=== PATIENT | female | born 1995 | race Caucasian/White ===

== ENCOUNTER 2022-02-01 05:30 | Outpatient (CLI) | payer BC ==
[~2022-02-01] VITALS: Ht 162.6 cm; Wt 73.6 kg
[2022-02-01] MEDS ORDERED: NORG1TAB78 PO (09:19)
[2022-02-01] MEDS ORDERED: VENL150C98 PO (09:19)
[2022-02-01] MEDS ORDERED: AMLO-251 PO (09:19)
--- NOTE | 2022-02-01 15:28 | Progress Note-Pre Operative ---
Pre-Operative Progress Note Date of Available H&P: Feb 02, 2022 Date H&P Reviewed: Feb 02, 2022 Time H&P Reviewed: 12:22 History & Physical: H&P Reviewed, No changes noted Pre-Operative Diagnosis: ROYAL-2 MANNY NGUYEN MD Feb 01, 2022 15:28
--- NOTE | 2022-02-01 15:29 | Progress Note-Post Operative ---
Post-Operative Progess Note Surgeon (s)/District Extension Service Agent (s) Surgeon MANNY NGUYEN MD District Extension Service Agent: none Pre-Operative Diagnosis ROYAL-2 Post-Operative Diagnosis Same with pathology pending Procedure & Operative Findings Date of Procedure 02/01/22 Procedure Performed/Findings LEEP procedure Anesthesia Type General Estimated Blood Loss Estimated blood loss (mL): minimal cc Specimens/Packing Specimens Removed ectocervix - LEEP specimen MANNY NGUYEN MD Feb 01, 2022 15:29
== END 2022-02-01 09:33 ==
LOC: PREOP 05:30
PROVIDERS: ATTEND Obstetrics & Gynecology
DX: Z01.818 Encounter for other preprocedural examination (principal)

== ENCOUNTER 2022-02-02 10:29 | Day surgery (SDC) | payer OTHER, BC ==
[~2022-02-02] VITALS: Ht 162.6 cm; Wt 73.6 kg
[2022-02-02] VITALS (11 sets, daily range): BP systolic 98–130; BP diastolic 65–83
[~2022-02-02 10:29] MED LIST: AMLO-251 PO; NORG1TAB78 PO; VENL150C98 PO
[2022-02-02] MEDS ORDERED: ceFAZolin INJECTION 1,000 MG ONE (11:05)
[2022-02-02] MEDS ORDERED: KETOROLAC 30 MG/ML VIAL IVP ONE (11:15)
[2022-02-02] MEDS ORDERED: LACTATED RINGERS 1,000 ML IV PRN (11:15)
[2022-02-02] MEDS ORDERED: D5 LR IV SOLUTION 1,000 ML IV SCH (11:15)
[2022-02-02] MEDS ORDERED: MEPERIDINE (DEMEROL) INJ 100 MG/ML IM ONE (11:15)
[2022-02-02] MEDS ORDERED: PROMETHAZINE INJ 25 MG/ML (PHENERGAN) AMP IM ONE (11:15)
[2022-02-02] MEDS ORDERED: oxyCODONE/APAP 5/325MG (PERCOCET 5) TABLET PO PRN (11:15)
[2022-02-02] MEDS ORDERED: ONDANSETRON 4 MG/2 ML (SDV) Z0FRAN IVP PRN ×2 (11:15→13:15)
[2022-02-02] MEDS ORDERED: ceFAZolin INJECTION 1,000 MG VIAL IV ONE (11:15)
[2022-02-02] MEDS ORDERED: MIDAZOLAM 2 MG/2 ML (VERSED) VIAL ONE (11:21)
[2022-02-02] MEDS ORDERED: ONDANSETRON 4 MG/2 ML (SDV) Z0FRAN ONE (11:21)
[2022-02-02] MEDS ORDERED: LIDOCAINE PF 2% 5 ML (XYLOCAINE) VIAL ONE (11:21)
[2022-02-02] MEDS ORDERED: proPOfol 200 MG/20 ML (DIPRIVAN) VIAL IV ONE (11:21)
[2022-02-02] MEDS ORDERED: fentaNYL INJ 100 MCG/2 ML AMP ONE (11:21)
--- NOTE | 2022-02-02 12:25 | Discharge Inst-Surgical ---
Discharge Inst-Surgical Depart Medication/Instructions New, Converted or Re-Newed RX: Transmitted to Pharmacy Consults/Follow Up Patient Instructions: As directed Orders & Referrals Follow Up Appt: Call to make follow up appt. for patient in 2 weeks. Activity: Rest for 24 hours, than as tolerated. May use own Tylenol and/or Motrin as needed for pain Diet: As tolerated shower or tub bathe as desired. No driving for 24 hours, no alcoholic beverages for 24 hours, and nothing per vagina (no tampons, douching, or intercoarse) for 2 weeks. Patient to return to the clinic as soon as possible for: Temperature greater than 101F, Severe Pain, Foul discharge from incision or vagina, Excessive Bleeding (more than a period). Activity Activity as Tolerated: No Diet Discharge Diet: No Restrictions MANNY NGUYEN MD Feb 02, 2022 12:25
[2022-02-02] MEDS ORDERED: KETOROLAC 30 MG/ML VIAL ONE (12:41)
[2022-02-02] MEDS ORDERED: SEVOFLURANE (ULTANE) 15 ML INHAL SOLN ONE (12:44)
[2022-02-02] MEDS ORDERED: morphine INJ 10 MG/ML 1ML (SYR OR VIAL) IVP ONE (13:15)
[2022-02-02] MEDS ORDERED: oxyCODONE/APAP 5/325MG (PERCOCET 5) TABLET ONE (14:00)
--- NOTE | 2022-02-02 14:45 | Anesthesia-General Post-Op ---
General Patient Condition Mental Status/LOC: Same as Preop Cardiovascular: Satisfactory Nausea/Vomiting: Absent Respiratory: Satisfactory Pain: Controlled Complications: Absent Post Op Complications Complications None Follow Up Care/Instructions Patient Instructions None needed. Anesthesia/Patient Condition Patient Condition Patient is doing well, no complaints, stable vital signs, no apparent adverse anesthesia problems. No complications reported per nursing. MCKENZIE CARRION CRNA Feb 02, 2022 14:45
--- NOTE | 2022-02-02 20:41 | OPERATIVE REPORT ---
DATE OF SERVICE: 02/02/2022 PREOPERATIVE DIAGNOSIS: ROYAL II. POSTOPERATIVE DIAGNOSIS: ROYAL II with pathology pending. OPERATIVE PROCEDURE: LEEP. OPERATIVE DESCRIPTION: With the patient in the supine position under satisfactory general anesthesia, she was repositioned in dorsal lithotomy position in the Steve stirrups and prepped and draped in the usual fashion for vaginal surgery. Weighted speculum placed in posterior fornix of vagina, cervix exposed and grasped anteriorly with single tooth tenaculum. The cervix was saturated with 5% acetic acid after several minutes that was evacuated from the vagina and then using a 25 mm LEEP electrode. A single pass was used to remove the entire transformation zone and all the acetowhite epithelium from the ectocervix. The specimen was tagged at 12 o'clock position and sent to pathology for permanent section. The cervical defect was treated with ball electrocautery to affect complete hemostasis. Cut and coagulation was set at 50 rivera of power for the procedure. Sponge and needle counts were correct on completion of this procedure. Blood loss was minimal. The patient tolerated the procedure well and was then awakened from her general anesthesia uneventfully and transferred to the recovery room in stable condition with plans for discharge home PAR. Job ID: [id number] DocumentID: [id number] Dictated Date: 02/02/2022 13:46:17 Auriculotherapist Date: 02/02/2022 20:40:32 Dictated By: MANNY NGUYEN MD [facility]
== END 2022-02-02 15:00 | disposition home or self-care (01) ==
LOC: SDC 10:29
PROVIDERS: ATTEND Obstetrics & Gynecology
DX: N87.1 Moderate cervical dysplasia (principal)
CPT/HCPCS: 84703; 87081

== ENCOUNTER → 2022-02-07 | Outpatient (CLI) | payer OTHER, BC ==
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
--- NOTE | 2022-02-07 18:25 | Diagnostic Imaging Report ---
INDICATION: Neck pain. COMPARISON: MRI from the same day. FINDINGS: There is reversal of the cervical lordosis. Alignment is normal. There is no abnormal prevertebral soft tissue thickening or widening of the predental space. The vertebral body heights are maintained. The disc spaces appear preserved. IMPRESSION: Normal cervical spine alignment with reversal of the cervical lordosis. Vertebral body heights and disc spaces appear maintained. Dictated by: Dictated on workstation # [id number]
== END ==
LOC: RAD 14:36
PROVIDERS: ATTEND Pain Medicine Interventional Pain Medicine
DX: M50.10 Cervical disc disorder with radiculopathy, unspecified cervical region (principal)
CPT/HCPCS: 72040; 72141

== ENCOUNTER 2022-09-28 05:49 | Outpatient (CLI) | payer OTHER, BC ==
[~2022-09-28] VITALS: Ht 162.5 cm; Wt 90.9 kg
[2022-09-28] MEDS ORDERED: CETI10TA49 PO (13:41)
== END 2022-09-28 14:05 | disposition home or self-care (01) ==
LOC: PREOP 05:49
PROVIDERS: ATTEND Otolaryngology Otolaryngology/Facial Plastic Surgery
DX: Z01.818 Encounter for other preprocedural examination (principal)

== ENCOUNTER 2022-10-05 07:46 | Day surgery (SDC) | payer BC, OTHER ==
[~2022-10-05] VITALS: Ht 162.5 cm; Wt 90.9 kg
[2022-10-05] VITALS (10 sets, daily range): BP systolic 110–148; BP diastolic 72–99
[~2022-10-05 07:46] MED LIST changes: +CETI10TA49 PO
[2022-10-05] MEDS ORDERED: LACTATED RINGERS 1,000 ML IV PRN (08:15)
[2022-10-05 08:24] LABS: BASOPHILS % (AUTO) 0 % (0-10); EOSINOPHILS % (AUTO) 0 % (0-10); HEMATOCRIT 40 % (35-52); HEMOGLOBIN 13.5 g/dL (11.5-16.0); LYMPHOCYTES # (AUTO) 2.6 10^3/uL (1.0-4.0); LYMPHOCYTES % (AUTO) 28 % (12-44); MEAN CORPUSCULAR HEMOGLOBIN 27 pg (25-34); MEAN CORPUSCULAR HGB CONC 34 g/dL (32-36); MEAN CORPUSCULAR VOLUME 82 fL (80-99); MEAN PLATELET VOLUME 11.3 fL (9.0-12.2); MONOCYTES # (AUTO) 0.7 10^3/uL (0.0-1.0); MONOCYTES % (AUTO) 8 % (0-12); NEUTROPHILS # (AUTO) 5.9 10^3/uL (1.8-7.8); NEUTROPHILS % (AUTO) 63 % (42-75); PLATELET COUNT 351 10^3/uL (130-400); WHITE BLOOD COUNT 9.3 10^3/uL (4.3-11.0)
[2022-10-05] MEDS ORDERED: proPOfol 200 MG/20 ML (DIPRIVAN) VIAL IV ONE (09:57)
[2022-10-05] MEDS ORDERED: MIDAZOLAM 2 MG/2 ML (VERSED) VIAL ONE (09:57)
[2022-10-05] MEDS ORDERED: fentaNYL INJ 100 MCG/2 ML AMP ONE (09:57)
[2022-10-05] MEDS ORDERED: LIDOCAINE PF 2% 5 ML (XYLOCAINE) VIAL ONE (09:57)
[2022-10-05] MEDS ORDERED: ONDANSETRON 4 MG/2 ML (SDV) Z0FRAN ONE (09:57)
--- NOTE | 2022-10-05 10:46 | Progress Note-Pre Operative ---
Pre-Operative Progress Note Date of Available H&P: October 05, 2022 Date H&P Reviewed: October 05, 2022 Time H&P Reviewed: 09:45 History & Physical: H&P Reviewed, Patient Examed, No changes noted Changes from last HP none Pre-Operative Diagnosis: T/A Hyper with ZOLTAN GALVEZ MD October 05, 2022 10:46
--- NOTE | 2022-10-05 10:48 | Progress Note-Post Operative ---
Post-Operative Progess Note Surgeon (s)/Disc Pad Plate Filler (s) Surgeon ZOLTAN SÁNCHEZ MD Disc Pad Plate Filler n/a Pre-Operative Diagnosis T/A Hyper with UAO Post-Operative Diagnosis same Post-Op Procedure Note Date of Procedure: October 05, 2022 Name of Procedure Performed: Tonsillectomy Description & Findings Description and Findings: n/a Anesthesia Type get Estimated Blood Loss minimal Packing none. Specimen(s) collected/removed tonsils ZOLTAN SÁNCHEZ MD October 05, 2022 10:48
[2022-10-05] MEDS ORDERED: APAP 325 MG/10.15 ML LIQ (TYLENOL) UDC PO PRN (11:00)
[2022-10-05] MEDS ORDERED: HYDROcodone/APAP 7.5MG-325 MG/15 ML (LORTAB) UDC PO PRN (11:00)
[2022-10-05] MEDS ORDERED: NS IV 1000 ML 1,000 ML IV SCH (11:00)
[2022-10-05] MEDS ORDERED: RT-ALBUTEROL HFA 8.5 GM INHALER IH ONE (11:06)
[2022-10-05] MEDS ORDERED: SEVOFLURANE (ULTANE) 15 ML INHAL SOLN ONE (11:13)
[2022-10-05] MEDS ORDERED: ONDANSETRON 4 MG/2 ML (SDV) Z0FRAN IVP PRN (11:30)
[2022-10-05] MEDS ORDERED: morphine INJ 10 MG/ML 1ML (SYR OR VIAL) IVP ONE (11:30)
[2022-10-05] MEDS ORDERED: MEPERIDINE (DEMEROL) INJ 50 MG/ML IVP ONE (11:30)
[2022-10-05] MEDS ORDERED: PROMETHAZINE INJ 25 MG/ML (PHENERGAN) AMP IVP ONE (11:30)
[2022-10-05] MEDS ORDERED: HYDROmorphone 2 MG/ML VIAL (DILAUDID) IV ONE (11:30)
[2022-10-05] MEDS ORDERED: morphine INJ 10 MG/ML 1ML (SYR OR VIAL) ONE (11:31)
[2022-10-05] MEDS ORDERED: HYDR15SO8 PO (11:41)
[2022-10-05] MEDS ORDERED: TETRACAINESUCKERS MT (11:41)
[2022-10-05] MEDS ORDERED: AZIT200S47 PO (11:41)
[2022-10-05] MEDS ORDERED: DEXAINTSOL PO (11:41)
--- NOTE | 2022-10-06 07:00 | Anesthesia-General Post-Op ---
General Patient Condition Mental Status/LOC: Same as Preop Cardiovascular: Satisfactory Nausea/Vomiting: Absent Respiratory: Satisfactory Pain: Controlled Complications: Absent Post Op Complications Complications None Follow Up Care/Instructions Patient Instructions None needed. Anesthesia/Patient Condition Patient Condition Patient is doing well, no complaints, stable vital signs, no apparent adverse anesthesia problems. No complications reported per nursing. MCKENZIE CARRION CRNA October 06, 2022 07:00
== END 2022-10-05 14:00 | disposition home or self-care (01) ==
LOC: SDC 07:46
PROVIDERS: ATTEND Otolaryngology Otolaryngology/Facial Plastic Surgery
DX: J35.01 Chronic tonsillitis (principal); J35.3 Hypertrophy of tonsils with hypertrophy of adenoids; G47.9 Sleep disorder, unspecified
CPT/HCPCS: 36415; 84703; 85025; 87081